=== PATIENT | female | born 1990 ===

== ENCOUNTER 2022-04-10 08:53 | Outpatient (CLI) | payer OTHER | END 2022-04-10 09:55 | disposition home or self-care (01) | LOC: PRENATAL 08:53 | PROVIDERS: ATTEND Obstetrics & Gynecology Maternal & Fetal Medicine | DX: O26.849 Uterine size-date discrepancy, unspecified trimester (principal); Z3A.17 17 weeks gestation of pregnancy ==

== ENCOUNTER 2022-05-11 14:23 | Outpatient (CLI) | payer OTHER | END 2022-05-11 16:35 | disposition home or self-care (01) | LOC: PRENATAL 14:23 | PROVIDERS: ATTEND Obstetrics & Gynecology Maternal & Fetal Medicine | DX: O35.0XX0 Maternal care for (suspected) central nervous system malformation in fetus, not applicable or unspecified (principal); O35.3XX0 Maternal care for (suspected) damage to fetus from viral disease in mother, not applicable or unspecified; Z14.8 Genetic carrier of other disease; Z88.0 Allergy status to penicillin; Z3A.21 21 weeks gestation of pregnancy ==

== ENCOUNTER 2024-10-31 08:26 | Outpatient (CLI) | payer OTHER | END 2024-10-31 08:29 | disposition home or self-care (01) | LOC: PRENATAL 08:26 | PROVIDERS: ATTEND Obstetrics & Gynecology Maternal & Fetal Medicine | DX: O36.80X0 Pregnancy with inconclusive fetal viability, not applicable or unspecified (principal); Z36.82 Encounter for antenatal screening for nuchal translucency; O34.219 Maternal care for unspecified type scar from previous cesarean delivery; Z3A.14 14 weeks gestation of pregnancy ==

== ENCOUNTER → 2024-12-15 09:35 | Outpatient (CLI) | payer OTHER | END | disposition home or self-care (01) | LOC: PRENATAL 09:35 | PROVIDERS: ATTEND Obstetrics & Gynecology Maternal & Fetal Medicine | DX: O44.00 Complete placenta previa NOS or without hemorrhage, unspecified trimester (principal); O34.219 Maternal care for unspecified type scar from previous cesarean delivery; O26.879 Cervical shortening, unspecified trimester; Z3A.20 20 weeks gestation of pregnancy ==

== ENCOUNTER 2025-01-01 08:04 | Outpatient (CLI) | payer OTHER ==
[2025-01-01] MEDS ORDERED: PRENATAL + DHA1 EAC1 PO (10:30)
[2025-01-01] MEDS ORDERED: FOLIC ACID20 MG PO (10:30)
== END 2025-01-01 08:05 | disposition home or self-care (01) ==
LOC: PRENATAL 08:04
PROVIDERS: ATTEND Obstetrics & Gynecology Maternal & Fetal Medicine
DX: O26.849 Uterine size-date discrepancy, unspecified trimester (principal); O34.219 Maternal care for unspecified type scar from previous cesarean delivery; Z14.8 Genetic carrier of other disease; O26.879 Cervical shortening, unspecified trimester; Z3A.22 22 weeks gestation of pregnancy

== ENCOUNTER 2025-01-01 09:56 | Day surgery (SDC) | payer OTHER ==
[~2025-01-01] VITALS: Ht 160 cm; Wt 58.5 kg
[2025-01-01 10:15] VITALS: BP 101/63
[2025-01-01] MEDS ORDERED: FOLIC ACID20 MG PO (10:30)
[2025-01-01] MEDS ORDERED: PRENATAL + DHA1 EAC1 PO (10:30)
[2025-01-01 10:42] LABS: HEMATOCRIT 34.9 % (36.0-45.00); HEMOGLOBIN 11.7 g/dL (12.0-15.00); MEAN CELL VOLUME 93.3 fL (80.00-100.00); MEAN CORPUSCULAR HEMOGLOBIN 31.2 pg (27.00-32.0); MEAN CORPUSCULAR HGB CONC 33.5 g/dl (32.0-36.0); PLATELET COUNT 345 K/uL (150-450); RED BLOOD COUNT 3.74 M/uL (4.00-6.00); RED CELL DISTRIBUTION WIDTH 13.8 % (11.5-14.5); URINE APPEARANCE Cloudy; URINE BILIRRUBIN Negative (NEGATIVE); URINE BLOOD Negative; URINE COLOR Yellow; URINE GLUCOSE Negative (NEGATIVE); URINE KETONE Negative (NEGATIVE); URINE LEUKOCYTE Moderate; URINE NITRATE Negative; URINE PROTEIN Negative (NEGATIVE); URINE UROBILINOGEN 0.2 E.U./dl
[2025-01-01 10:44] LABS: URINE BACTERIA 955.9 uL (0.0-1933); URINE EPITHELIAL CELLS 73.7 uL (0.0-38.8); URINE RBC 71.1 uL (0.0-20.8); URINE WBC 11.5 uL (0.0-23.2)
[2025-01-01 10:53] LABS: URINE CAST 0.44 uL (0.0-1.40)
[2025-01-01 11:02] LABS: INR < 0.93; PARTIAL THROMBOPLASTIN TIME 27.2 SECONDS (22.0-34.0); PROTHROMBIN TIME 9.9 SECONDS (9.0-11.5)
[2025-01-01 12:40] VITALS: BP 105/68; O2SAT 100
[2025-01-01] MEDS ORDERED: INDOMETHACIN 50 MG CAPSULE PO NR (12:45)
[2025-01-01] MEDS ORDERED: METRONIDAZOLE/SODIUM CHLORIDE 500 MG/100 ML PIGGYBACK IV NR (12:45)
[2025-01-01] MEDS ORDERED: POVIDONE-IODINE 118 ML BOTT TOP ONE (14:03)
[2025-01-01] MEDS ORDERED: INDOMETHACIN 25 MG CAPSULE PO SCH (20:00)
== END 2025-01-01 20:15 | disposition home or self-care (01) ==
LOC: CIR.AMB 09:56 → LDR 09:56 → EDSTATUS 14:15 → O/R 14:40 → LDR 14:40 → O/R 14:40 → CIR.AMB 20:15 → O/R 20:15
PROVIDERS: ATTEND Obstetrics & Gynecology Maternal & Fetal Medicine
DX: O34.32 Maternal care for cervical incompetence, second trimester (principal); Z3A.22 22 weeks gestation of pregnancy; O26.872 Cervical shortening, second trimester

== ENCOUNTER → 2025-01-16 11:41 | Outpatient (CLI) | payer OTHER ==
[~2025-01-16 11:41] MED LIST: FOLIC ACID20 MG PO; PRENATAL + DHA1 EAC1 PO
== END | disposition home or self-care (01) ==
LOC: PRENATAL 11:41
PROVIDERS: ATTEND Obstetrics & Gynecology Maternal & Fetal Medicine
DX: O26.849 Uterine size-date discrepancy, unspecified trimester (principal); O34.219 Maternal care for unspecified type scar from previous cesarean delivery; O26.879 Cervical shortening, unspecified trimester; Z3A.25 25 weeks gestation of pregnancy

== ENCOUNTER 2025-02-09 09:35 | Outpatient (CLI) | payer OTHER | END 2025-02-09 09:38 | disposition home or self-care (01) | LOC: PRENATAL 09:35 | PROVIDERS: ATTEND Obstetrics & Gynecology Maternal & Fetal Medicine | DX: O26.849 Uterine size-date discrepancy, unspecified trimester (principal); O34.219 Maternal care for unspecified type scar from previous cesarean delivery; O26.879 Cervical shortening, unspecified trimester; Z3A.28 28 weeks gestation of pregnancy ==

== ENCOUNTER 2025-03-23 09:42 | Outpatient (CLI) | payer OTHER | END 2025-03-23 16:33 | disposition home or self-care (01) | LOC: PRENATAL 09:42 | PROVIDERS: ATTEND Obstetrics & Gynecology Maternal & Fetal Medicine | DX: O26.849 Uterine size-date discrepancy, unspecified trimester (principal); O36.8199 Decreased fetal movements, unspecified trimester, other fetus; O34.219 Maternal care for unspecified type scar from previous cesarean delivery; O26.879 Cervical shortening, unspecified trimester; Z3A.35 35 weeks gestation of pregnancy ==